=== PATIENT | male | born 1985 | race African-American/Black ===

== ENCOUNTER 2019-05-09 01:02 | Emergency (ER) | payer SELFPAY ==
[~2019-05-09] VITALS: Ht 182.9 cm; Wt 67.8 kg
[~2019-05-09 01:02] MED LIST: ELEC100095 PO; ONDA4TAB14 PO
[2019-05-09 01:08] VITALS: Ht 182.9 cm; Wt 67.8 kg
[2019-05-09] MEDS ORDERED: SOD CHLORIDE 0.9% 1,000 ML IV STA ×2 (05:19→08:55)
[2019-05-09] MEDS ORDERED: morphine 2 MG INJ IV STA (05:19)
[2019-05-09] MEDS ORDERED: ONDANSETRON 4 MG INJ IV STA (05:19)
[2019-05-09] MEDS ORDERED: KETOROLAC 30 MG INJ IV STA (05:19)
[2019-05-09] MEDS ORDERED: SOD CHLORIDE 0.9% 100 ML ONE (06:45)
[2019-05-09] MEDS ORDERED: IOHEXOL 300MG/ML 150 ML BTL ONE (06:45)
[2019-05-09] MEDS ORDERED: AZITHROMYCIN 500 MG TAB PO ONE (07:00)
[2019-05-09] MEDS ORDERED: CEFTRIAXONE 250 MG INJ IM ONE ×2 (07:00→07:30)
[2019-05-09] MEDS ORDERED: CEFTRIAXONE 250 MG INJ IVPB ONE (07:00)
[2019-05-09] MEDS: LIDOCAINE 1% (MDV) 20 ML INJ SC ONE ×2 (07:01→07:16)
--- NOTE | 2019-05-09 07:03 | ERD ---
ER Documentation Chief Complaint Chief Complaint bib ra [id number] c/o abdominal pain/vomiting x 3 days HPI 33-year-old male presented to ED for 6 out of 10 sharp nonradiating epigastric pain x3 days. Patient initially seen by BRENDA Navarro who ordered abdominal/pelvic CT with contrast and abdominal ultrasound. Patient was given Toradol and morphine for pain Zofran for nausea normal saline. Labs of lipase, CMP, CBC and UA were ordered. On my initial evaluation the patient states he is feeling much better and that he has had abdominal pain for the past few days and vomited blood. Patient states that he is a heavy drinker and was binge drinking. Patient states he only has an allergy to penicillin but states it is just diarrhea and is never had an anaphylactic reaction to this medication. ROS All systems reviewed and are negative except as per history of present illness. Medications Home Meds Active Scripts Electrolytes (Pedialyte [facility]) 1,000 Ml Solution, 1000 ML PO 5 TIMES DAILY for 7 Days Prov:ELBERT ALBERT PA-C 05/09/19 Ondansetron (Ondansetron Odt) 4 Mg Tab.rapdis, 4 MG PO Q6H PRN for NAUSEA AND/OR VOMITING, #10 TAB Prov:ELBERT ALBERT PA-C 05/09/19 Allergies Allergies: Coded Allergies: Penicillins (Verified Allergy, Unknown, 05/09/19) PMhx/Soc Medical and Surgical Hx: pt denies Surgical Hx Hx Cardiac Disorders: Yes (MURMUR ) Hx Alcohol Use: Yes Hx Substance Use: Yes (MARIJUANA ) Hx Tobacco Use: Yes Smoking Status: Current every day smoker FmHx Family History: No diabetes, No coronary disease, No other Physical Exam Vitals Vital Signs Date Temp Pulse Resp B/P (MAP) Pulse Ox O2 O2 Flow FiO2 Time Delivery Rate 05/09/19 98.5 70 18 106/57 99 Room Air 12:32 (73) 05/09/19 56 96/50 (65) 08:45 05/09/19 77 104/61 Room Air 07:22 (75) 05/09/19 97.8 77 18 111/65 100 01:08 (80) Physical Exam GENERAL: Moderate distress HEENT: Atraumatic. Conjunctivae are pink. Pupils equal, round, and reactive to light. There is no scleral icterus. Tympanic membranes clear bilaterally. Oropharynx clear. No nystagmus or photophobia. NECK: C-spine is soft and supple. There is no meningismus. There is no cervical lymphadenopathy. CHEST: Clear to auscultation bilaterally. There are no rales, wheezes or rhonchi. HEART: Regular rate and rhythm. No murmurs, clicks, rubs or gallops. ABDOMEN:Soft, nontender and nondistended. Good bowel sounds. No rebound or guarding. No gross peritonitis. No gross organomegaly or masses. No Wilson sign or McBurney point tenderness. BACK: No midline or flank tenderness. EXTREMITIES: Equal pulses bilaterally. There is no peripheral clubbing, cyanosis or edema. No focal swelling or erythema. Full range of motion. Grossly neurovascularly intact. Result Diagram: 05/09/19 0929 05/09/19 0555 Results 24 hrs Laboratory Tests Test 05/09/19 05:55 05/09/19 09:29 White Blood Count 12.5 10^3/ul 11.3 10^3/ul Red Blood Count 4.35 10^6/ul 4.13 10^6/ul Hemoglobin 13.9 g/dl 13.1 g/dl Hematocrit 40.3 % 38.2 % Mean Corpuscular Volume 92.6 fl 92.5 fl Mean Corpuscular Hemoglobin 32.0 pg 31.7 pg Mean Corpuscular Hemoglobin Concent 34.5 g/dl 34.3 g/dl Red Cell Distribution Width 11.9 % 11.9 % Platelet Count 299 10^3/UL 289 10^3/UL Mean Platelet Volume 10.3 fl 10.2 fl Immature Granulocytes % 0.300 % 0.300 % Neutrophils % 79.4 % 73.9 % Lymphocytes % 12.8 % 16.4 % Monocytes % 7.0 % 8.6 % Eosinophils % 0.2 % 0.4 % Basophils % 0.3 % 0.4 % Nucleated Red Blood Cells % 0.0 /100WBC 0.0 /100WBC Immature Granulocytes # 0.040 10^3/ul 0.030 10^3/ul Neutrophils # 9.9 10^3/ul 8.4 10^3/ul Lymphocytes # 1.6 10^3/ul 1.9 10^3/ul Monocytes # 0.9 10^3/ul 1.0 10^3/ul Eosinophils # 0.0 10^3/ul 0.0 10^3/ul Basophils # 0.0 10^3/ul 0.0 10^3/ul Nucleated Red Blood Cells # 0.0 10^3/ul 0.0 10^3/ul Urine Color YELLOW Urine Clarity SLIGHTLY CLOUDY Urine pH 7.0 Urine Specific [place] 1.018 Urine Ketones 2+ mg/dL Urine Nitrite NEGATIVE mg/dL Urine Bilirubin NEGATIVE mg/dL Urine Urobilinogen 1+ mg/dL Urine Leukocyte Esterase 2+ Alfredo/ul Urine Microscopic RBC 2 /HPF Urine Microscopic WBC 34 /HPF Urine Squamous Epithelial Cells FEW /HPF Urine Bacteria FEW /HPF Urine Mucus FEW /HPF Urine Hemoglobin 1+ mg/dL Urine Glucose NEGATIVE mg/dL Urine Total Protein NEGATIVE mg/dl Sodium Level 141 mmol/L Potassium Level 4.0 mmol/L Chloride Level 101 mmol/L Carbon Dioxide Level 29 mmol/L Anion Gap 11 Blood Urea Nitrogen 8 mg/dl Creatinine 0.88 mg/dl Est Glomerular Filtrat Rate mL/min > 60 mL/min Glucose Level 102 mg/dl Calcium Level 10.1 mg/dl Total Bilirubin 2.1 mg/dl Direct Bilirubin 0.00 mg/dl Indirect Bilirubin 2.1 mg/dl Aspartate Amino Transf (AST/SGOT) 21 IU/L Alanine Aminotransferase (ALT/SGPT) 16 IU/L Alkaline Phosphatase 56 IU/L Total Protein 6.8 g/dl Albumin 4.5 g/dl Globulin 2.30 g/dl Albumin/Globulin Ratio 1.95 Lipase 71 U/L Current Medications Medications Dose Sig/Mira Start Time Status Last (Trade) Ordered Route PRN Stop Time Admin Dose Reason Admin Sodium 1,000 ml @ Q1H STAT 05/09/19 DC 05/09/19 Chloride 1,000 mls/hr IV 05:19 06:19 05/09/19 06:18 Morphine 2 mg ONCE STAT 05/09/19 DC 05/09/19 Sulfate IV 05:19 06:18 (morphine) 05/09/19 05:21 Ondansetron 4 mg ONCE STAT 05/09/19 DC 05/09/19 HCl (Zofran IV 05:19 06:17 Inj) 05/09/19 05:21 Ketorolac 30 mg ONCE STAT 05/09/19 DC 05/09/19 Tromethamine IV 05:19 06:17 (Toradol) 05/09/19 05:21 IV Flush 10 ml STK-MED 05/09/19 DC 05/09/19 (NS 10 ml) ONCE .ROUTE 06:45 06:57 05/09/19 06:46 Sodium 100 ml @ ud STK-MED 05/09/19 DC 05/09/19 Chloride ONCE .ROUTE 06:45 06:58 05/09/19 06:46 Iohexol 150 ml STK-MED 05/09/19 DC 05/09/19 (Omnipaque ONCE .ROUTE 06:45 06:58 300mg/ ml) 05/09/19 06:46 Ceftriaxone 250 mg ONCE ONCE 05/09/19 Cancel Sodium IM 07:00 (Rocephin) 05/09/19 07:01 1,000 mg ONCE ONCE 05/09/19 DC 05/09/19 Azithromycin PO 07:00 07:16 (Zithromax) 05/09/19 07:01 Lidocaine 20 ml ONCE ONCE 05/09/19 DC 05/09/19 (Xylocaine SC 07:00 07:16 1% (Mdv) 20 05/09/19 07:01 ml) Ceftriaxone 250 mg ONCE ONCE 05/09/19 UNV Sodium IVPB 07:00 (Rocephin) 05/09/19 07:01 Ceftriaxone 250 mg ONCE ONCE 05/09/19 DC 05/09/19 Sodium IM 07:30 07:17 (Rocephin) 05/09/19 07:31 Sodium 1,000 ml @ Q1H ONCE 05/09/19 DC Chloride 1,000 mls/hr IV 07:30 05/09/19 08:31 Sodium 1,000 ml @ Q1H STAT 05/09/19 DC 05/09/19 Chloride 1,000 mls/hr IV 08:55 09:18 05/09/19 09:54 40 mg ONCE STAT 05/09/19 DC 05/09/19 Pantoprazole IV 08:55 09:30 (Protonix 05/09/19 08:58 Iv) Procedures/MDM ED course: Patient initially seen by BRENDA Navarro and had extensive abdominal work-up with CT with contrast of the abdominal pelvis, ultrasound of the abdomen. Patient was given morphine and Toradol for pain management fluid replacements with normal saline and Zofran for nausea. Upon my initial evaluation the patient appeared alert oriented x4 but vitals indicated the patient was hypotensive at 96/50. The patient UA indicated a UTI and the patient admits to risky sexual behavior with no pain. At this time I will be treating the patient empirically for STI prophylaxis. . I brought this to the attention of Dr. Shaw who evaluated the patient placed in orders for fluids and Protonix. The patient was stable throughout the ED course. The patient and/or family informed of laboratory and diagnostic imaging results throughout the ED course. Diagnostic imaging: Read by radiologist Dr. Hawkins PROCEDURE: US Abdomen. CLINICAL INDICATION: abdominal pain TECHNIQUE: Multiple real-time images were acquired of the patient's right upper quadrant abdomen and retroperitoneum utilizing a high resolution transducer. COMPARISON: None FINDINGS: The liver demonstrates normal echogenicity. The liver is normal in size and no focal solid lesions are seen. The liver measures 15.2 cm in length. The portal vein is patent with normal direction of flow. No intrahepatic biliary dilatation is seen. No gallstones are identified within the gallbladder. There is no pericholecystic fluid or gallbladder wall thickening. The common bile duct measures 4 mm in maximal dimension. The visualized portions of the pancreas are unremarkable. The tail of the pancreas is not seen. No free fluid is identified. The right kidney is normal in size, and demonstrate normal echogenicity and cortical thickness. The right kidney measures 10.7 cm in long dimension. There is no evidence of hydronephrosis. There are no kidney stones. RPTAT: AA IMPRESSION: Unremarkable right upper quadrant abdominal ultrasound. PROCEDURE: CT Abdomen and Pelvis with contrast. CLINICAL INDICATION: Abdomen and pelvis pain. TECHNIQUE: CT scan of the abdomen and pelvis with contrast was performed. The patient was scanned following the uncomplicated intravenous administration of 100 ml of Omnipaque-300. Coronal and sagittal reformatted images were obtained from the axial source images. Images were reviewed on a high-resolution PACS [employer]. Total exam DLP is 319 mGy-cm. CTDIvol is 5 mGy. One or more of the following dose reduction techniques were used: Automated exposure control, adjustment of the mA and/or kV according to patient size, use of iterative reconstruction technique. DICOM images are available. COMPARISON: None. FINDINGS: There is bilateral lung base atelectasis versus scarring. There is no pleural e ffusion. The liver is normal in size and attenuation. There is no focal hepatic lesion. The gallbladder and bile ducts are normal. The spleen is normal in size. There is no focal splenic lesion. Both adrenals are normal with no enlargement or mass. The pancreas is unremarkable with no mass or evidence of pancreatitis. Both kidneys demonstrate normal contrast enhancement. There is no renal mass or hydronephrosis. The abdominal aorta is not dilated. There is no retroperitoneal lymphadenopathy or mass. There is no pelvic lymphadenopathy or mass. The bladder and distal ureters are normal. The periappendiceal region is unremarkable with no evidence of appendicitis. The bowel and mesentery are normal. There is no free fluid or free gas. The osseous structures are unremarkable with no fracture or lytic lesion. IMPRESSION: 1. No bowel obstruction 2. No pneumoperitoneum. 3. No displaced osseous fractures. PROCEDURE: XR Chest. CLINICAL INDICATION: No blood pressure TECHNIQUE: PA and Lateral views of the chest were obtained. COMPARISON: None. FINDINGS: Cardiomediastinal silhouette is normal. Pulmonary vasculature is normal. Lungs and costophrenic angles are clear. The bones soft tissues are unremarkable. IMPRESSION: No evidence of acute cardiopulmonary disease. Medications given in ER: Toradol Morphine Normal saline Patient tolerated medication well with no adverse reactions. Patient reported improvement in pain. Medical decision making: Patient is a 33-year-old male presented to ED for abdominal plain secondary to binge drinking and vomiting. Patient was initially seen by BRENDA Navarro and was signed out to me in the morning. Patient states he vomited blood yesterday. Upon my initial evaluation the patient indicated the patient had UTI. I would back to speak to the patient regarding this infection found out he has participated and risky sexual behaviors. I advised the patient if he had any concerns for STIs. The patient states he does not know but has not been using protection during intercourse. Advised the patient that I would like to treat him empirically for gonorrhea chlamydia. The patient states that he is okay with this and thinks is a good idea. The patient was further worked up in the ED to rule out Boerhaave's syndrome. The patient's chest x-ray was unremarkable and showed no free air fluid in mediastinum, CT showed No pneumoperitoneum. At this time I have low suspicion for esophageal varices, ruptured esophagus, internal bleeding, liver failure, aspiration pneumonia, sepsis. The patient was given 2 L of fluid in the ER because he was hypotensive. I advised the attending Dr. Shaw about the patient. She evaluated my patient and gave recommendations to give Protonix. Upon reeva luation the patient appears to be doing much better. He is up speaking in full sentences he is in no acute respiratory distress his abdomen is soft nontender he feels good enough to go home. The patient has not had any episodes of vomiting or bleeding while in the ED. I advised the patient that he is anemic and that he needs bedrest for the next few days and to avoid drinking alcohol. Advised the patient that he should return to ER immediately if he begins to vomit again or symptoms worsen. Otherwise he should follow-up with his primary care provider in 1 to 2 days regarding this visit. Patient is agreement treatment plan and had no further questions upon discharge. The patient is agr eement to the treatment plan Prescription for home: Ashanti Lowe I have discussed with the patient proper use and common side effects to expert with the medication . I advised the patient/family to speak with the pharmacist dispensing the medication to be advised of any potential drug int eractions with other medication or supplements they may be taking. Discharge: At this time, patient is stable for discharge and outpatient management. I have instructed the patient to follow-up with his\her primary care physician in 1 to 2 days. I have discussed with the patient the possibility of needing to see a specialist for further work-up and imaging studies if symptoms persist. I have instructed the patient to promptly return to the ER for any new or worsening symptoms including increased pain, fever, nausea, vomiting, weakness or LOC. The patient and\or family expressed understanding of and agreement with this plan. All questions were answered. Home care instructions were provided. Disclaimer: Inadvertent spelling and grammatical errors are likely due to EHR\dictation s oftware use and do not reflect on the overall quality of patient care. Also, please note that the electronic time recorded on the note does not necessarily reflect the actual time of the patient encounter. Departure Diagnosis: Primary Impression: Alcoholic gastritis with bleeding Chronicity: acute Qualified Codes: K29.21 - Alcoholic gastritis with bleeding Additional Impression: Anemia Iron deficiency anemia type: unspecified iron deficiency Condition: Stable ELBERT ALBERT PA-C May 09, 2019 07:03
[2019-05-09] MEDS ORDERED: SOD CHLORIDE 0.9% 1,000 ML IV ONE (07:30)
[2019-05-09] MEDS ORDERED: PANTOPRAZOLE 40 MG INJ IV STA (08:55)
[2019-05-09 12:32] VITALS: BP 106/57; PULSE 70; RESP 18
== END 2019-05-09 12:35 | disposition home or self-care (01) ==
LOC: FTE 01:02
DX: K29.21 Alcoholic gastritis with bleeding (principal); D64.9 Anemia, unspecified; F17.210 Nicotine dependence, cigarettes, uncomplicated
CPT/HCPCS: 36415; 71046; 74177; 76705; 80053; 81001; 83690; 85025; 87591; 96361; 96372; 96374; 96375; 99285; C9113; J0696; J1885; J2270; J2405; J7030; Q9967